=== PATIENT | male | born 1995 | race Caucasian/White ===

== ENCOUNTER 2016-04-16 20:47 | Emergency (ER) | payer OTHER ==
[2016-04-16 23:01] LABS: Hematocrit 46 % (42-52); Hemoglobin 15.3 g/dl (14.0-18.0); Mean Corpuscular HGB Conc 33 g/dl (31-36); Mean Corpuscular Hemoglobin 29 pg (27-31); Mean Corpuscular Volume 88 fL (80-94); Mean Platelet Volume 8 um3 (7.4-10.4); Red Blood Count 5.24 10^6/ul (4.0-5.4); Red Cell Distribution Width 13 % (10.5-15); White Blood Count 8.9 10^3/ul (3.5-10.8)
--- NOTE | 2016-04-16 23:06 | RAD ---
Indication: Shortness of breath. 2 views of the chest including dual energy PA views demonstrate no mediastinal shift. Heart is of normal size and configuration. Lung durant are clear. No pleural fluid, pneumonia or pneumothorax is noted. IMPRESSION: No active cardiopulmonary disease is noted.
[2016-04-16 23:16] LABS: Albumin 4.4 g/dL (3.2-5.2); BUN/Creatinine Ratio 14.6 (8-20); Calcium 9.3 mg/dL (8.6-10.3); EGFR African American 118.4 (>60); EGFR Non-African American 92.1 (>60); Globulin 2.7 g/dL (2-4); Magnesium 2.2 mg/dL (1.9-2.7); Potassium 4.1 mmol/L (3.5-5.0); Total Bilirubin 1.3 mg/dL (0.2-1.0); Total Protein 7.1 g/dL (6.4-8.9)
--- NOTE | 2016-04-16 23:37 | ED ---
HPI Cardiac - HPI Summary HPI Summary: Pt presents w/ difficulty taking a deep breath. Had this a couple of weeks ago but was associated with URI sx so didn't think much of it. Returned today w/o URI sx and not sure why. Denies chest pain, cough, back pain, neck pain, MORRIS, fever, chills, N/V/D, skin changes, ab pain, leg pain/swelling. Took an [address] ride recently. Denies smoking, use of illegal drugs and occasionally drinks ETOH - nothing recently. H/o testosterone in the past - not taking presently. No recent injury/trauma. No known h/o clotting issues. No recent dehydration. Denies caffiene use in the past 2 days. When asked if he has a lot of stress, he says not really. Spends many hours on his computer doing school work. Pt also has asthma - this does not feel the same and denies any recent triggers for asthma to flair. - History of Current Complaint Chief Complaint: EDShortnessOfBreath Stated Complaint: DIFF BREATHING,LIGHT HEADED Time Seen by Provider: 04/16/16 22:23 Hx Obtained From: Patient Pain Intensity: 4 - Allergy/Home Medications Allergies/Adverse Reactions: Allergies Allergy/AdvReac Type Severity Reaction Status Date / Time No Known Allergies Allergy Verified 04/16/16 20:54 PMH/Surg Hx/FS Hx/Imm Hx Previously Healthy: Yes Endocrine/Hematology History: Denies: Hx Anticoagulant Therapy, Hx Blood Disorders, Hx Thyroid Disease, Hx Coagulopothy, Autoimmune Disease Cardiovascular History: Denies: Hx Congenital Heart Disease, Hx Deep Vein Thrombosis, Hx Embolism Respiratory History: Reports: Hx Asthma Infectious Disease History: No Infectious Disease History: Denies: Traveled Outside the [place] in Last 30 Days - Family History Known Family History: Positive: None - Social History Occupation: Student Lives: With Family Alcohol Use: Rare Hx Substance Use: No Substance Use Type: Reports: None Hx Tobacco Use: No Smoking Status (MU): Never Smoked Tobacco Review of Systems Constitutional: Negative Eyes: Negative ENT: Negative Cardiovascular: Negative Respiratory: Other - see HPI Gastrointestinal: Negative Positive: no symptoms reported Musculoskeletal: Negative Negative: Rash Neurological: Negative Psychological: Normal All Other Systems Reviewed And Are Negative: Yes Physical Exam Triage Information Reviewed: Yes Vital Signs On Initial Exam: Initial Vitals Temp Pulse Resp BP Pulse Ox 98.9 F 90 20 139/71 100 04/16/16 20:50 04/16/16 20:50 04/16/16 20:50 04/16/16 20:50 04/16/16 20:50 Vital Signs Reviewed: Yes Appearance: Positive: Well-Appearing - appears anxious, No Pain Distress, Well- Nourished Skin: Positive: Warm, Dry - no rash observed Head/Face: Positive: Normal Head/Face Inspection Eyes: Positive: Normal, EOMI, Conjunctiva Clear ENT: Positive: Hearing grossly normal, Pharynx normal - mucosa somewhat dry. Negative: Nasal congestion, Nasal drainage Neck: Positive: Supple, Nontender Respiratory/Lung Sounds: Positive: Clear to Auscultation, Breath Sounds Present. Negative: Rales, Rhonchi, Stridor, Tracheal Deviation, Wheezes Cardiovascular: Positive: Normal, RRR, Pulses are Symmetrical in both Upper and Lower Extremities, S1, S2. Negative: Murmur, Rub, Leg Edema Left, Leg Edema Right - (-) Soila's sign B/L Abdomen Description: Positive: Nontender, Soft Bowel Sounds: Positive: Present Musculoskeletal: Positive: Normal, Strength/ROM Intact Neurological: Positive: Normal, Sensory/Motor Intact, Alert, Oriented to Person Place, Time, CN Intact II-III Psychiatric: Positive: Normal Diagnostics - Vital Signs Vital Signs Temp Pulse Resp BP Pulse Ox 04/16/16 22:04 98.9 F 67 16 134/75 99 04/16/16 20:50 98.9 F 90 20 139/71 100 - Laboratory Lab Results: Lab Results 04/16/16 04/16/16 04/16/16 Range/Units 22:54 22:54 22:54 WBC 8.9 (3.5-10.8) 10^3/ul RBC 5.24 (4.0-5.4) 10^6/ul Hgb 15.3 (14.0-18.0) g/dl Hct 46 (42-52) % MCV 88 (80-94) fL MCH 29 (27-31) pg MCHC 33 (31-36) g/dl RDW 13 (10.5-15) % Plt Count 272 (150-450) 10^3/ul MPV 8 (7.4-10.4) um3 Neut % (Auto) 67.4 (38-83) % Lymph % (Auto) 23.3 L (25-47) % [place] % (Auto) 6.9 (1-9) % Eos % (Auto) 1.4 (0-6) % Baso % (Auto) 1.0 (0-2) % Absolute Neuts (auto) 6.0 (1.5-7.7) 10^3/ul Absolute Lymphs (auto) 2.1 (1.0-4.8) 10^3/ul Absolute Monos (auto) 0.6 (0-0.8) 10^3/ul Absolute Eos (auto) 0.1 (0-0.6) 10^3/ul Absolute Basos (auto) 0.1 (0-0.2) 10^3/ul Absolute Nucleated RBC 0.01 10^3/ul Nucleated RBC % 0.1 D-Dimer, Quantitative < 200 (Less Than 230) ng/mL Sodium 138 (133-145) mmol/L Potassium 4.1 (3.5-5.0) mmol/L Chloride 106 (101-111) mmol/L Carbon Dioxide 25 (22-32) mmol/L Anion Gap 7 (2-11) mmol/L BUN 15 (6-24) mg/dL Creatinine 1.03 (0.67-1.17) mg/dL Est GFR ( Amer) 118.4 (>60) Est GFR (Non-Af Amer) 92.1 (>60) BUN/Creatinine Ratio 14.6 (8-20) Glucose 93 (70-100) mg/dL Calcium 9.3 (8.6-10.3) mg/dL Magnesium 2.2 (1.9-2.7) mg/dL Total Bilirubin 1.30 H (0.2-1.0) mg/dL AST 29 (13-39) U/L ALT 21 (7-52) U/L Alkaline Phosphatase 64 (34-104) U/L Total Protein 7.1 (6.4-8.9) g/dL Albumin 4.4 (3.2-5.2) g/dL Globulin 2.7 (2-4) g/dL Albumin/Globulin Ratio 1.6 (1-3) TSH Pending Result Diagrams: 04/16/16 22:54 04/16/16 22:54 Lab Statement: Any lab studies that have been ordered have been reviewed, and results considered in the medical decision making process. Disposition - Course Course Of Treatment: Pt's SOB appears to be either anxiety and/or musculoskeletal restriction due to lack of ROM of secondary respiratory mm. Tests performed to asses for more life threatening pathology and all found to be normal. Advised pt to stay hydrated, try stretching and implement stress reductioun activities. He may follow-up at [facility]. If symptoms persist or worsen, return to ED. - Diagnoses Provider Diagnoses: Breathing problem Discharge - Discharge Plan Condition: Stable Disposition: HOME Patient Education Materials: Dyspnea (ED) Referrals: Non Staff,Doctor [Primary Care Provider] - [facility] SEA Gerber [Medical Doctor] - Additional Instructions: Your difficulty taking a deep breath appears to be a musculoskeletal restriction due to lack of range of motion of your accessory respiratory muscle (ie. scalenes, sternomastoid, pectoralis, seratus anterior and latissiumus, etc) . Tests performed to asses for more life threatening pathology and all found to be normal. Advise hydration, stretching muscles mentioned above and implement stress reduction activities. You may follow-up at [facility]. Call tomorrow to schedule an appointment. *If symptoms persist or worsen an/or you develop fever, chills, vomiting, shortness of breath, back pain, bloody cough, return to ED.
[2016-04-17 00:34] LABS: TSH (Thyroid Stimulating Horm) 1.33 mcIU/mL (0.34-5.60)
[2016-04-17 01:15] VITALS: BP 120/68
== END 2016-04-17 01:07 | disposition home or self-care (01) ==
LOC: ED 20:47
DX: R06.02 Shortness of breath (principal); R42 Dizziness and giddiness
CPT/HCPCS: 36415; 71020; 80053; 83735; 84443; 85025; 85379; 99283